=== PATIENT | female | born 1950 | race Caucasian/White ===

== ENCOUNTER → 2019-01-09 | Outpatient (CLI) | payer OTHER | LOC: NUC 01-02 14:07 | DX: M81.0 Age-related osteoporosis without current pathological fracture (principal); M06.9 Rheumatoid arthritis, unspecified ==

== ENCOUNTER 2020-01-12 10:40 | Inpatient (IN) | payer OTHER ==
[~2020-01-12] VITALS: Ht 149.9 cm; Wt 41.3 kg
[2020-01-12 10:42] VITALS: BP 150/81
[2020-01-12 11:35] LABS: BASOPHILS 0.6 % (0.0-2.0); EOSINOPHILS 1.6 % (0.0-3.0); HEMATOCRIT 38.4 % (37.0-47.0); HEMOGLOBIN 12.8 gm/dL (12.0-15.0); LYMPHOCYTES 13.1 % (24.0-44.0); MCH 34.4 pg (26.0-34.0); MCHC 33.4 g/dL (28.0-37.0); MONOCYTES 10.7 % (1.0-8.0); PLATELET COUNT 270 thou/uL (150-400); RBC 3.73 mil/uL (4.20-5.00); RDW 11.8 % (10.5-14.5); WBC 5.5 thou/uL (4.0-11.0)
[2020-01-12 11:42] LABS: URINE BILIRUBIN NEGATIVE (Negative); URINE BLOOD NEGATIVE (Negative); URINE CLARITY CLEAR; URINE COLOR YELLOW; URINE GLUCOSE-RANDOM* NEGATIVE (Negative); URINE KETONES NEGATIVE (Negative); URINE LEUKOCYTES-REFLEX NEGATIVE (Negative); URINE NITRITE-REFLEX NEGATIVE (Negative); URINE PROTEIN (DIPSTICK) NEGATIVE (Negative); URINE UROBILINOGEN 0.2 E.U./dl (0.2-1.0)
[2020-01-12 11:43] LABS: CALCIUM 9.7 mg/dL (8.5-10.1); CREATININE 0.5 mg/dL (0.6-1.0); POTASSIUM 4.4 mmol/L (3.5-5.1)
[2020-01-12 11:45] LABS: ALBUMIN 3.9 g/dL (3.4-5.0); TOTAL BILIRUBIN 0.3 mg/dL (0.2-1.0); TOTAL PROTEIN 7.1 g/dL (6.4-8.2)
[2020-01-12] MEDS ORDERED: ADVAIR 250-501 EACH INH (15:28)
[2020-01-12] MEDS ORDERED: HYDROXYCHLOROQ200 M1 PO (15:29)
[2020-01-12 15:53] VITALS: BP 113/75
[2020-01-12] MEDS ORDERED: OMEPRAZOLE40 MG PO (16:00)
[2020-01-12] MEDS ORDERED: LORAZEPAM 1 MG T1 MG PO (16:00)
[2020-01-12] MEDS ORDERED: DONEPEZIL HCL 55 M1 PO (16:02)
[2020-01-12] MEDS ORDERED: LOVASTATIN 20 M20 MG PO (16:02)
[2020-01-12 16:04] VITALS: BP 161/94
[2020-01-12] MEDS ORDERED: VENTOLIN HFA 1818 GM INH (16:06)
[2020-01-12] MEDS ORDERED: VALSARTAN160 MG PO (16:06)
[2020-01-12] MEDS ORDERED: VOLTAREN GEL 1100 G2 TOP (16:07)
[2020-01-12] MEDS ORDERED: MIRTAZAPINE7.5 MG PO (16:08)
[2020-01-12] MEDS ORDERED: BACLOFEN 10MG T10 MG PO (16:08)
[2020-01-12] MEDS ORDERED: IBUPROFEN 200200 M1 PO (16:09)
[2020-01-12] MEDS ORDERED: TYLENOL EXTRA500 MG PO (16:09)
--- NOTE | 2020-01-12 18:31 | NUR ---
Admitted from ER. Alert and orientated X4. Hx of depression over past 6 wks with multiple falls and suicide attempt of taking pills and whiskey. Has also called her daughter over past two weeks stating that she doesn't want to live and to come take care of her /daughter's father. Significant wt. loss d/t problems with dentures, mouth pain. States that her palate is gritty and there is a film over teeth that noone else can see. Also states that she has problems with her mouth/nose tightening and with frequent mouth bleeding. States she has appetite but can't eat d/t mouth issues. Denies SI/HI currently but states she is depressed. Now concerned that insurance only covers psych hospitalization but if med needs are consulted they won't be covered by insurance. Breath sounds clear. Reg HR auscultated. Color pink with brisk capillary refill and palpable peripheral pulses. Independent with voiding. States she had a formed BM several hours ago. Active bowel sounds over soft, flat abdomen. Reg steady gait with walker, significant scolosis. Currently speaking with on phone r/t concerns with insurance.
[2020-01-12 19:01] VITALS: BP 142/80
--- NOTE | 2020-01-13 04:56 | NUR ---
01-13-20 CARE TRANSFERRED 1914. PT AAOX4, VSS, RR EVEN AND NONLABORED ON RA. PT DENIES ANY PAIN AND SI/SH/HI. PT PRESENTS ANXIOUS AND TEARFUL REPORTS THAT SHE HAS BEEN VERY BAD AND WILL PROBABLY GO TO HELL. PT REPORTS THAT SHE NEEDS A PRIVATE ROOM. LATER CONTACTED PHARMACY R/T MEDICATION. LATER MEDICATION WAS ADMIN AND PT HAD NO DIFFICULTIES. LATER ASSISTED PT TO BATHROOM WITH GAIT BELT AND WALKER, NOTED PT GAIT IS SLOW AND UNSTEADY. LATER RESPONDED TO PT AND PT WAS TEARFUL AND WORRYING ABOUT FINANCIAL BURDEN THAT SHE HAS CAUSED HER AND KIDS, BUT THEY STILL LOVE ME, I DON'T DESERVE THEM. LATER ASSISTED PT WITH BED ADJUSTMENT FOR COMFORT. LATER PT REPORTED SHE WAS OK WITH HER ROOMMATE AND STATE SHE'S A GOOD PERSON. ZERO S/S OF ACUTE DISTRESS NOTED, PT WILL CONTINUE TO BE MONITOR PER [facility] PROTOCOL.
[2020-01-13 07:21] VITALS: BP 157/85
[2020-01-13 08:30] VITALS: BP 157/85
--- NOTE | 2020-01-13 08:49 | NUR ---
PT ENCOURAGED TO GET UP AND EAT BREAKFAST. PT DIDN'T WANT TO GO EAT AT FIRST. PT HAS ISSUES WITH HER MOUTH FROM DENTURES. PT HAS NYSTATIN ORDERED AND SHE REFUSED IT DUE TO THE MEDICATION MAKES HER MOUTH FEEL TIGHT AND SHE ALREADY HAS A SMALL MOUTH. PT HAS SCOLIOSIS AND USES WALKER. PT LUNGS CLEAR. PT LAST BM 01/11. PT DID GO TO EAT BREAKFAST, SHE COULDN'T EAT THE URDU MUFFIN.
--- NOTE | 2020-01-13 09:00 | NUR ---
PT TOOK MEDS WHOLE, PT WANTED TO KNOW WHAT EACH MED IS. PT HAS A SMILE ON HER FACE WHEN TALKING. PT USES WALKER TO AMBULATE, PT STAND-BY ASSIST.
--- NOTE | 2020-01-13 18:30 | NUR ---
PT COMPLAINED OF FEELING BLOATED AND WANTED SOMETHING FOR HER BOWELS. ADM MILK OF MAG.
[2020-01-13 19:23] VITALS: BP 129/75
[2020-01-13 21:07] VITALS: BP 129/75
--- NOTE | 2020-01-13 22:27 | H ---
[facility] [place] [address] HISTORY AND PHYSICAL Name: LYNDA BENOIT Room #: 521B-B ADM IN M.R.#: [id number] Admission: 01/12/20 Attend Phys: Dread Chery DO Discharge: Date of : 52 Report #: [id number] THIS REPORT FOR: cc: FAM - Family physician unknown FAM - Family physician unknown Dread Chery DO ~ CC: Dread SOLANO unknown INPATIENT PSYCHIATRIC EVALUATION ATTENDING PSYCHIATRIST: Dread Chery DO. PARKING ANALYST: Felecia Allison, nurse practitioner as well as her collaborating hospitalist Matteo Dewey MD. REASON FOR ADMISSION: Severe depression, recent suicidal ideation, weight loss. SOURCES OF INFORMATION: Interview with the patient, interview with the , Emergency Room records, chart review. HISTORY OF PRESENT ILLNESS: This is a 69-year-old much older than stated age kyphotic, frail-appearing female. The patient is stating that she has a fungus in her mouth. She states she is unable to swish and swallow nystatin. This is occupying her. She has a lot of somatic focus. From interview with her and her , she had a fall 2 weeks ago. She was checked out in the ER at [facility] approximately 6 weeks ago. She had an overdose of Coca-Cola and alcohol in a suicide attempt. The patient 2 months ago had a COVID-19 infection; she states she has never recovered from. The patient reportedly as well has a daughter that has been involved and the daughter spoke to our bereavement program coordinator, Valentina Harrell. ADDITIONAL INFORMATION: The patient has increased paranoia, obsessive behavior. She is constantly worried about her hair thinning; feels that she looks like "a witch." She is unwilling to go outside or FaceTime due to this. She is fearful of doctors as well as was reluctant to come in. Apparently in addition to drinking too much alcohol, she took pills with this suicide attempt. She expressed to her daughter yesterday that she "wanted her to come pick her up, so she could end it all." She was on buspirone and trazodone for anxiety and sleep; however, the PCP who is Dr. Lorrie Dickerson, changed this to mirtazapine 3 weeks ago as this combination was not working. The patient and family do not believe that mirtazapine has helped either. She is also is fixated on her mouth, which she was on my interview today. She was scheduled to see an ENT last week, but they canceled due to the doctor called in sick. She has had a few falls over the last month, usually when getting up in the middle of the night. states that she does well in the day and all of her falls have been from getting out of bed. [place] [address] HISTORY AND PHYSICAL Name: LYNDA BENOIT Room #: 521B-B ADM IN M.R.#: [id number] Admission: 01/12/20 Attend Phys: Dread Chery DO Discharge: Date of : 52 Report #: [id number] all of her falls have been from getting out of bed. She has a history of asthma, scoliosis, arthritis, lives at home with her . The SI attempt was 6 weeks ago. The patient has been highly focused on it. PAST MEDICAL HISTORY: Includes osteoarthritis, osteoporosis, right shoulder replacement, right knee replacement, asthma, also says RH of medical history. PSYCHIATRIC HISTORY: Depression. ALLERGIES: TO CLINDAMYCIN, LEVOFLOXACIN, PENICILLIN, SULFA DRUGS. REVIEW OF SYSTEMS: From the ER: CONSTITUTIONAL: Denies fever, chills, malaise, unexplained weight change. EYES: Denies eye pain, visual change or discharge. HENT: Denies hearing changes, ear drainage, ear infections, ear pain, neck pain and neck stiffness. RESPIRATORY: Denies cough, shortness of breath, hemoptysis or respiratory distress. CARDIOVASCULAR: Denies chest pain, chest pain with exertion or edema. GASTROINTESTINAL: Denies abdominal pain, nausea, vomiting or diarrhea. GENITOURINARY: Denies burning, frequency or dysuria. MUSCULOSKELETAL: Denies back pain, joint pain, muscle weakness or myalgias. SKIN: Denies rash. NEUROLOGIC: Denies weakness, headache or loss of consciousness. Otherwise, 10-point review of systems negative. Weight is 41.28 kilos, BMI 17.3. PHYSICAL EXAMINATION: Grossly normal from the ER. LABORATORY TESTS: Done in the ER are as follows: Hematology H and H 12.8 and 38.4, white count 5.5, platelet count 270. She had slightly elevated segmented neutrophil percentage, monocyte percentage and a low lymphocyte percentage. Chemistries obtained showed sodium 140, potassium 4.4, chloride 103, bicarbonate 28, anion gap 9, BUN 16, creatinine 0.5, estimated GFR 123, glucose 101, calcium 9.7, total bilirubin 0.3, AST 25, ALT 35, alkaline phosphatase 123, total protein 7.1, albumin 3.9. Urinalysis was negative. COVID-19 PCR serology was negative for antigen as well as PCR. ADDITIONAL HISTORY: She has 3 female siblings. She has several children, I believe 3, they are all grown. The patient was born and raised in [place]. She has an associate's degree. 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 She denies history of physical, sexual or emotional abuse. Denies service. She has been for 46 years. FAMILY MEDICAL HISTORY: Failed to get. Really inadequate family history though [facility] [address] [place] [address] HISTORY AND PHYSICAL Name: LYNDA BENOIT Room #: 521B-B ADM IN .R.#: [id number] Admission: 01/12/20 Attend Phys: Dread Chery, Discharge: Date of : 52 Report #: [id number] the hospitalist noted it was reviewed and noncontributory to admission. SOCIAL HISTORY: The patient denies history of alcohol, tobacco, or recreational drug use other than her "suicide attempt"presentation [facility] was about 12/17/2019. VITAL SIGNS: Today, temperature 36.2, pulse 81, respirations 18, BP 157/85, O2 sat 96%. MUSCULOSKELETAL: Uses a walker, glasses, markedly kyphotic. MENTAL STATUS EXAMINATION: This is a well-developed, ill-appearing female appearing older than stated age. Attention limited. Concentration limited. Speech is normal in rate, volume and tone. Thought process: Linear and goal directed. Thought content: Relative poverty of thought. No psychomotor agitation, slight psychomotor retardation. Mood and affect were congruent, constricted. Denies SI, HI. Endorses depression. Denies auditory, visual or tactile hallucinations. Memory: The patient did receive the [facility] Mental Status examination; she scored a 14/30. Verbal fluency was preserved as well as some aspects of memory. Executive function, attention and other areas of memory were not preserved. Insight limited. Judgment limited and fund of knowledge below baseline. FORMULATION: A 69-year-old female admitted to the [facility] for severe symptoms of depression and cognitive evaluation. 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 Additional morbidities include osteoporosis, osteoarthritis. PLAN: Evaluate, stabilize, obtain collateral. Neuropsychology, Dr. Marks, has been consulted. We will go ahead and order dementia lab work. She has had a CT recently, so that does not need to be repeated. She did request a taper off lorazepam that she was taking 1 mg twice a day, so I put her on 0.25 mg b.i.d. for now. She was getting scheduled baclofen, but only takes p.r.n. so that has been reduced to p.r.n. Also, she was given 7.5 mg at bedtime of mirtazapine, increasing that to 22.5 mg to emphasize its antidepressant impact. She is refusing to take nystatin even when applied in plain press fashion, referred that to the hospitalist. She is taking losartan 100 mg p.o. daily for hypertension and hydroxychloroquine 200 mg p.o. daily for osteoarthritis, Protonix 40 mg p.o. daily for GERD, diclofenac scheduled 4 times a day, Aricept 5 mg p.o. at bedtime. I am guessing she has already had a diagnosis of dementia by her PCP. I did leave a voice mail for Dr. Dickerson, so I will clarify that. Sometimes PCPs will place the patients on cognitive enhancers, just if they are complaining of memory problems without a formal diagnosis, so again I need to [facility] [address] [place] [address] HISTORY AND PHYSICAL Name: LYNDA BENOIT Room #: 521B-B ADM IN M.R.#: [id number] Admission: 01/12/20 Attend Phys: Dread Chery DO Discharge: Date of : 52 Report #: [id number] clarify. ESTIMATED LENGTH OF STAY: 10-14 days. I spoke with her , does want the patient to return home to live with him. STRENGTHS: She is insured, supportive family. WEAKNESSES: Fair degree of debility. Time spent on interview, review of records, coordination of care of this patient was in excess of 60 minutes. She is a full code. Also, on a review if EKG was done in the ER or otherwise. It was not, so I will endeavor to get a baseline EKG as well. <ELECTRONICALLY SIGNED> By: Dread Chery DO 01/13/20 [id number] [id number] Dread Chery DO /nt
--- NOTE | 2020-01-14 04:31 | NUR ---
Assumed care of patient this pm shift. Patient in good spirits sitting in the mileu. Patient is mildly confused. Alert and oriented x3. Patient takes medicaitons whole with thin fluids. Patient is considered a falls risk and has on yellow socks and yellow shirt. Patients assessment shows no signs of acute distress. Vital signs are stable. We will continue to monitor per hospital policy.
--- NOTE | 2020-01-14 08:34 | EKG ---
[facility] [place] [address] ELECTROCARDIOGRAM REPORT Name: LYNDA BENOIT Room #: [facility] ADM IN M.R.#: [id number] Admission: 01/12/20 Attend Phys: Dread Chery DO Discharge: Date of : 52 Report #: [id number] THIS REPORT FOR: cc: FAM - Family physician unknown FAM - Family physician unknown Bahman Ng MD [facility] ~ THIS REPORT FOR: //name// [facility] Test Date: 2020-01-13 Test Time: 18:09:06 Pat Name: LYNDA BENOIT Department: Room: [facility] Gender: F Structural Iron Erector: ROJAS : 1950 Requested By: Dread Chery Order Number: [id number] MD: Bahman Ng Measurements Intervals Max Rate: 82 P: 76 FL: 140 QRS: -35 QRSD: 99 T: 54 QT: 360 QTc: 421 Interpretive Statements Sinus rhythm Left ventricular hypertrophy No previous ECG available for comparison Electronically Signed On 01-14-2020 8:34:26 CDT by Bahman Ng [email or web address] <ELECTRONICALLY SIGNED> By: Bahman Ng MD, FAC 01/14/20 0834 08 08 Bahman Ng MD, [facility] /EPI
[2020-01-14 08:54] VITALS: BP 129/75
--- NOTE | 2020-01-14 10:47 | NUR ---
1050 [facility] OVERNIGHT SHIFT THIS AM, PATIENT IN ROOM QUIET. PATIENT GOT UP CAME TO DAY ROOM FOR BREAKFAST. PATIENT ATE TOOK MEDICATION WITHOUT INCIDENCE. PATIENT ORIENTED TIMES 4 PATIENT CALM COOPERATIVE, PATIENT DENIES SI/HI/AH/VH AT PRESENT. PATIENTS ABDOMEN SOFT FLAT BOWEL SOUNDS PRESENT LUNGS CLEAR. PATIENT IS ON FALLS PROTOCOL DUE TO UNSTEADY GAIT USES WALKER FOR ASSISTANCE. PATIENT HAS DIFFICULTY WITH CONSTIPATION AT TIMES, SHE DID HAVE BOWEL MOVEMENT THIS AM. ENCOURAGED TO DRINK MORE WATER AND WE GAVE PRUNE JUICE TO PATIENT. WILL CONTINUE TO MONITOR PATIENT FOR SAFETY AND BEHAVIORS.
--- NOTE | 2020-01-14 13:26 | NUR ---
EAGLE spoke to Unruly and arranged a zoom meeting for him, and the rest of pt's family, to converse with pt on 01/14 @11am. EAGLE sent Unruly and Delia an email with the meeting details. EAGLE team will continue to follow pt during her stay on this unit.
[2020-01-14 20:11] VITALS: BP 128/79
--- NOTE | 2020-01-14 22:15 | NUR ---
Care of patient assumed at 1915: Patient seated in dayroom at start of shift. Interacting well with other peer. Appeared to be calm and cooperative. Depressed affect observed. Alert and oriented x4. Patient reports depression rated 6/10, anxiety 10/10. Patient reports that she feels embarassed due to her mouth and it was "not worth living" which led to admission. When asked if she still felt this way, patient shrugged her shoulders. Patient reported that she has not been able to get her dentures and dental needs due to fear of having implants in lower gums and due to the fact that she had tested positive for Covid months ago. Mouth and mucous membranes appear dry and pink in color. Refused to use prescribed Nystatin because she "doesn't like it". Educated patient at length about use. Continued to refuse. Nurse offered PRN Tylenol which patient accepted. Patient took HS medication whole without difficulty. Declined HS snack. Patient denies SI/HI/AH/VH when asked. No s/s of delusional or paranoia observed. Patient reports that she had a bowel movement today but reports being constipated. Bowel sounds present x4. Offered PRN MOM to assist her with having a bowel movement, patient declined. Patient reported room was too hot, nurse turned down thermostat, patient stated that it was the wrong temperature, after several trips to her room, patient requested that it remain on the temperature it was originally on. Patient has requested a roomate and is afraid of being by herself. Anxiety appeared to escalate as the night progressed. Approximately 45 minutes after receiving HS medication, patient was able to fall asleep without difficulty and is resting quietly at this time.
[2020-01-15 09:03] VITALS: BP 125/73
--- NOTE | 2020-01-15 10:14 | NUR ---
ASSUMED CARE AT 0700 THIS MORNING. PT. UP, SITTING IN HER ROOM. NO PROBLEMS NOTED AT THAT TIME. SHE AMBULATED TO THE DINING ROOM FOR BREAKFAST WITH USE OF WALKER. STEADY GAIT NOTED. SHE ATE WILL. AFTER BREAKFAST SHE WAS MAKING MANY REQUESTS. THIS RN ATTEMPTED TO MEET ALL HER NEEDS. AFTER A BIT OF TIME SHE SETTLED DOWN AND WENT TO AM GROUP. SHE TOOK HER MORNING MEDICATIONS WITHOUT PROBLEMS BUT AFTER STATED SHE THOUGHT ONE WAS NOT THERE AND WAS ON HER BREAKFAST TRAY. SHE STATED "I THINK I TOOK AN EXTRA PILL THIS MORNING AND NOW I AM FEELING OUT OF IT." SHE WAS ASSURED SHE WAS NOT GIVEN ANY EXTRA MEDICATIONS THIS MORNING, ONLY WHAT THE ORDERED AND SHE HAS BEEN TAKING. SHE THEN TURNED HER ATTENTION TO THE TRAZADONE SHE TOOK LAST NIGHT FOR SLEEPING. SHE STATED SHE HAD NOT SLEPT IN 4 DAYS AND WAS GIVEN A TRAZADONE LAST NIGHT. SHE SLEPT 6 HOURS. SHE BELIEVES THAT WAS "TOO STRONG AND I SHOULD NOT HAVE TAKEN IT." SHE WAS INFORMED SHE NEEDS SLEEP ALSO.
[2020-01-15 12:39] VITALS: BP 125/73
[2020-01-15 19:20] VITALS: BP 139/64
--- NOTE | 2020-01-16 02:38 | NUR ---
Assumed care of pt @ 1900. Pt calm et cooperative with pleasant demeanor this shift. Pt c/o inability to get restful sleep the last few nocs. Physician barrel rifler button ordered Trazodone 50mg PRN HS with repeat if ineffective. Pt was given PRN with HS meds. Took medications whole without difficulty. Ambulates with assistance of walker. VSWNL. Health assessment with no abnormalities noted. Denies SI/HI/AVH at present time. Socialized with peers in dayroom until HS. Currently resting in bed with eyes closed. Will continue to monitor per unit protocol.
[2020-01-16 07:26] VITALS: BP 114/78
--- NOTE | 2020-01-16 12:59 | NUR ---
Assumed care of patient at 0700. Remains on Fall precautions. Gait steady. Using walker. Alert and oriented X4. Denies SI/HI and AVH. Participating in groups. Interacting with peers. Medication adherent. Educated about indications for medications. While resisitve initially about taking Nystatin she took it. Eating meals in the day room. Talking to her family on the telephone. Arpan called and stated he wanted her to be discharged on Saturday at the latest since she has appointments later inthe day on Saturday and she has appointments later in the week.
--- NOTE | 2020-01-16 15:43 | NUR ---
SW met with patient 1:1 in lieu of group. Patient was engaged and talked mostly about her family (children and grandchildren.) She talked about her son who 8 yrs ago. Patient asked for some wordfinder puzzles. SW printed a few pages for her. SW team will continue to monitor during this hospitalization.
--- NOTE | 2020-01-17 08:57 | NUR ---
ASSUMED CARE AT 0700 THIS MORNING. PT. UP, DRESSED AND AMBULATING ON THE UNIT. SHE IS EATING FAIRLY WELL AND TOOK HER MEDICATIONS WHOLE, WITHOUT PROBLEMS NOTED. SHE IS COMMUNICATING WELL WITH THIS RN THIS MORNING. SHE DID NOT IDENTIFY ADDITIONAL PROBLEMS TODAY.
[2020-01-17 09:00] VITALS: BP 143/73
[2020-01-17 13:01] VITALS: BP 143/73
--- NOTE | 2020-01-17 15:28 | NUR ---
SW received a message from pt's dtr, Anabel [phone] asking to schedule a zoom call with pt. SW assisted pt with completing a zoom call with her , Arpan and their daughter, Anabel. SW team will continue to monitor during hospitalization.
[2020-01-17 19:39] VITALS: BP 117/69
[2020-01-18 04:59] VITALS: BP 117/69
--- NOTE | 2020-01-18 05:12 | NUR ---
Assumed care on 01/17/20 @ 19:15, Alert and oriented x 4, Reports 5/10 level of anxiety and 5/10 level of depression, adding that she feels her depression is manifest mainly in tiredness. Denies SI/HI/AH/VH Reports knee pain of 6/10 for which she was provided Tylenol 650, and mouth pain of 8/10, however refuses to allow Nystatin to be painted in her mouth with sponge. Cooperates with assessment, HRRR, Lungs CTA, ABD noted to have active bowel sounds. Reports small BM on 01/16 after MOM on 01/15 @ HS. Noted to argue about the medications, saying "My doctor never prescribed all this medicine to me". Education provided regarding hospital protocol and who prescribes medicine. PRN Baclofen 10 provided for spasm and Trazadone 50 provided for insomnia. Sleeping well in bed after retiring @ HS, bed in low position, bed alarm set, rounding as per unit protocol.
--- NOTE | 2020-01-18 06:23 | NUR ---
slept 7 hours overnight.
[2020-01-18 07:28] VITALS: BP 145/75
--- NOTE | 2020-01-18 11:33 | NUR ---
EAGLE reviewed pt's neuropsych report which suggests pt assign a DPOA. EAGLE spoke with pt who said she believes she has already assigned one and it is her . SW contacte pt's who said she does not have one. EAGLE suggested both healthcare and financial and provided education on decision making once pt no longer has the cognitive ability to make decisions for self. Unruly said that he has an trademark attorney his family works with. EAGLE also talked with him about pt seeing Dr. Winslow for OP care. He was in agreement with that plan. EAGLE also told him she will provide a list of psychotherapists who accept Medicare insurance. CONTRACT WRITER contacted Dr. Winslow's office and scheduled an appt for pt for the 1st available slot of 02/24 @ 1400. SW team will continue to follow pt during her stay on this unit.
[2020-01-18 11:55] VITALS: BP 145/73
--- NOTE | 2020-01-18 11:59 | NUR ---
EAGLE D/C NOTE EAGLE created a SW handout with pt's appt with Dr. Winslow on February 24 @4954. EAGLE also provided a listing of therapists who accept Medicare insurance to be placed in pt's d/c packet. EAGLE explained this to [facility] nurse. No other needs for SW team to address at this time.
[2020-01-18 13:21] VITALS: BP 145/73
--- NOTE | 2020-01-18 13:40 | NUR ---
ASSUMED CARE AT 0700 THIS MORNING. PT. UP AND AMBULATING WITH WALKER ON THE UNIT. UPON TALKING TO PT. ABOUT NOT REFUSING MEDICATIONS SHE MADE EXCUSES FOR EVERY DECISION SHE HAS MADE. IE: SHE C/O OF PAIN TO MOUTH AND LIPS BUT CONTINUES TO REFUSE THE NYSTATIN. SHE STATES, "IT DOESN'T HELP". THIS ELECTRONIC INTELLIGENCE OFFICER ATTEMPTED TO TALK TO THIS PT. ABOUT HER CHANGING HER MIND ALL THE TIME FROM YES ONE TIME TO NO ANOTHER. SHE CONTINUED TO MAKE HER EXCUSES AND THEN LEFT THE ROOM. SHE CONTINUES TO REFUSE DICLOFENAC BECAUSE "IT MAKES GREASY STAINS ON MY PANTS", THEN C/O OF PAIN TO KNEES THAT NO ONE IS HELPING. SHE WALKES A LOT DURING THE DAY BACK AND FORTH FROM HER ROOM TO THE DINNING ROOM AND BACK. SHE GETS AGITATED WHEN HER THINKING IS QUESTIONED. SHE HAS BEEN EATING WELL.
[2020-01-18] MEDS ORDERED: NYSTATIN100000 UNI SW&SWALLOW (13:49)
[2020-01-18] MEDS ORDERED: BACLOFEN 10MG T10 MG PO (13:50)
[2020-01-18] MEDS ORDERED: REMERON 30 MG T30 M1 PO (13:51)
[2020-01-18] MEDS ORDERED: NORVASC5 MG PO (13:51)
[2020-01-18] MEDS ORDERED: LORAZEPAM 0.50.5 MG PO (13:52)
[2020-01-18] MEDS ORDERED: OMEPRAZOLE40 MG PO (13:53)
--- NOTE | 2020-01-19 22:11 | D ---
[facility] [place] [address] DISCHARGE SUMMARY Name: LYNDA BENOIT Room #: 521B-B DIS IN M.R.#: [id number] Admission: 01/12/20 Attend Phys: Dread Chery DO Discharge: 01/18/20 Date of : 52 Report #: [id number] THIS REPORT FOR: cc: RUSS - Family physician unknown FAM - Family physician unknown Dread Chery DO ~ THIS REPORT FOR: //name// CC: Dread SOLANO unknown DATE OF SERVICE: 01/18/2020 INPATIENT PSYCHIATRIC EVALUATION ATTENDING PSYCHIATRIST: Dread Chery DO. CENTRAL SUPPLY AIDE AT THE TIME OF DISCHARGE: Dr. Eli Araujo. CONSULTANTS THIS ADMISSION: Karsten Orozco, Ph.D. neuropsychology. DISCHARGE DIAGNOSES: As follows: Major neurocognitive disorder, likely due to Alzheimer's disease without behavioral disturbance, mild severity; major depressive disorder, single episode, moderate degree; generalized anxiety disorder. MEDICAL COMORBIDITIES: As follows: Thrush, which is oral Audelia 1, Nystatin swish and spit, which we had to make a paint brush on 3 times a day for 10 more days and osteoarthritis and scoliosis and chronic pain, history of asthma. DISCHARGE PLAN: Discharged to her , Ar[place]. DISCHARGE PLAN AFTERCARE: Will be seeing Dr. Homa Winslow, February 24 at 1430. wanted to get a listing of therapists who accept Medicare insurance. He will then arrange for therpait appoinment for patient. Supportive psychotherapy strongly encouraged. Patient does require 24-hour assistance and supervision for meals, medications, mobility need that she needs a walker. The patient should not drive. DIET: Pureed with Magic Cup with lunch and pudding at dinner. The patient was having a hard time swallowing with improvement in her throat from general medical health, she can probably be advanced to mechanical soft, chopped and then to a regular diet. REASON FOR ADMISSION: Back on the or so december, presented to the ER with worsening depressive symptoms x 2 months, was tested COVID for positive [facility] [address] [place] [address] DISCHARGE SUMMARY Name: LYNDA BENOIT Room #: 521B-B DIS IN M.R.#: [id number] Admission: 01/12/20 Attend Phys: Dread AnhSurinder Chery DO Discharge: 01/18/20 Date of : 52 Report #: [id number] just prior to symptoms starting. and daughter have been noticing increased paranoia and obsessive behaviors, constantly worried, has issues with her appearance. They are concerned that she made a suicide attempt a couple of weeks prior with alcohol and allegedly taking pills. Also, the daughter reported suicidal comment on admission. HOSPITAL COURSE: The patient was admitted to [facility] Unit. Besides the therapeutic milieu, which the patient participated in, svereal pharmacologic changes were carried out. In crease from 15 mg to mirtazapine 22.5 mg daily that would take advantage more 5HT2A receptor action for her being depressed. Affect was not totally eliminated and sleep and appetite stimulating effect. I did reduce her lorazepam to 0.25 mg twice a day, gave her a 5-day supply to taper off strictly. She got baclofen 10 mg p.o. t.i.d. p.r.n. during the admission, Nystatin swish and swallow was given 4 times a day inpatient, did an investigation into why she was on donepezil and I called her primary care physician Alee Dickerson in [facility] and apparently was started by Dr. Arboleda her prior PCP. The patient has been checked out at [facility] recently including a head CT, but she did not have neuropsych testing and the uncertainty of her dementia or whether she had mild cognitive impairment and I consulted Dr. Orozco. His findings were consistent with major neurocognitive disorder with mood disorder and anxiety. The patient's psychosis essentially resolved with treatment of her contributign factrs condition. Overall no scheduled antipsychotics were required. DISCHARGE MEDICATIONS: Nystatin 5000 units paint brush 3-4 times a day for 10 days; amlodipine 5 mg p.o. daily for hypertension; mirtazapine 22.5 mg p.o. for depression, sleep, appetite; lorazepam 0.25 mg p.o. b.i.d. p.r.n., max of 5 days. She should continue the Advair Diskus at home. Hydroxychloroquine 200 mg daily, donepezil 5 mg daily for cogntiive enhancement , losartan 150 mg p.o. daily, albuterol sulfate p.r.n., diclofenac gel and topical up to 4 times a day, acetaminophen p.r.n. She can continue omeprazole for GERD and baclofen. She will use p.r.n. due to qualities which [employer] describes as of concern on [place] list. LABORATORY DATA: Significant laboratories this admission on 01/12/2020, H and H 12.8 and 38.4, white count 5.5, MCV is surprisingly 103.0, platelet count 270. Chemistry: Sodium 140, potassium 4.4, chloride 103, bicarbonate 28, anion gap 9, BUN 16, creatinine 0.5, estimated GFR 123, glucose 101 or so, calcium 9.7, AST 25, ALT 35, alkaline phosphatase 123, total protein 7.0. Urinalysis was negative. COVID-19 PCR serology was negative on admission with antigen and PCR. [facility] [address] [place] [address] DISCHARGE SUMMARY Name: LYNDA BENOIT Room #: 521B-B DIS IN M.R.#: [id number] Admission: 01/12/20 Attend Phys: Dread Chery DO Discharge: 01/18/20 Date of : 52 Report #: [id number] PHYSICAL EXAMINATION: VITAL SIGNS: On the day of discharge, temperature 36.3, pulse 72, respirations 30, BP 145/73, O2 sat 97%. MUSCULOSKELETAL: Ambulates with a walker. MENTAL STATUS EXAMINATION: This is a well-developed, kyphotic, osteoarthritic female appearing older than stated age. Attention fair. Concentration fair. Speech is normal, rate, rhythm, tone. Thought process is linear and goal directed. Thought content focused on discharge. No psychomotor agitation. No psychomotor retardation. Denied SI or HI. Denied auditory, visual, or tactile hallucinations. Mood and affect was bright, congruent and euthymic. Denied hopelessness, helplessness. Memory known to be impaired. Insight limited. Judgment fair to limited. Fund of knowledge, no greater than average. PROGNOSIS: For this patient is guarded given her having a neurodegenerative disorder. I spoke to the on the day of discharge, he will provide a 24-hour care required. Also, I suggested he utilize [employer] website and programming. Questions were answered. <ELECTRONICALLY SIGNED> By: Dread Chery DO 01/19/20 [id number] Dread Chery DO /nt
== END 2020-01-18 15:15 | disposition home health service (06) | DRG 56 ==
LOC: ER 10:40 → SBH 16:41
PROVIDERS: Physician Assistant; ADMIT Psychiatry & Neurology Psychiatry; ATTEND Psychiatry & Neurology Psychiatry
DX: G30.9 Alzheimer's disease, unspecified (principal); F02.80 Dementia in other diseases classified elsewhere, unspecified severity, without behavioral disturbance, psychotic disturbance, mood disturbance, and anxiety; E43 Unspecified severe protein-calorie malnutrition; R45.851 Suicidal ideations; B37.0 Candidal stomatitis; Z68.1 Body mass index [BMI] 19.9 or less, adult; M19.90 Unspecified osteoarthritis, unspecified site; M81.0 Age-related osteoporosis without current pathological fracture; Z96.611 Presence of right artificial shoulder joint; Z96.651 Presence of right artificial knee joint; J45.909 Unspecified asthma, uncomplicated; F32.9 Major depressive disorder, single episode, unspecified; F41.9 Anxiety disorder, unspecified; M41.9 Scoliosis, unspecified; Z20.828 Contact with and (suspected) exposure to other viral communicable diseases; G89.29 Other chronic pain; Z88.1 Allergy status to other antibiotic agents; Z88.0 Allergy status to penicillin; Z88.2 Allergy status to sulfonamides; Z88.8 Allergy status to other drugs, medicaments and biological substances; Z79.899 Other long term (current) drug therapy
CPT/HCPCS: 10880